=== PATIENT | male | born 1975 | race Caucasian/White ===

== ENCOUNTER 2017-04-01 06:50 | Day surgery (SDC) | payer MEDICAID, OTHER ==
[~2017-04-01 06:50] MED LIST: Lactated Ringers 1,000 ML IV SCH; Sodium Chloride 0.9% 10 ML Syringe FLUSH PRN
[2017-04-01] MEDS ORDERED: Propofol 200 MG/20 ML SDV IV ONE (08:00)
[2017-04-01] MEDS ORDERED: Midazolam 1 MG/ML 2 ML SDV IV ONE (08:00)
--- NOTE | 2017-04-01 08:23 | PCM.OPNOTE ---
- General Post-Op/Procedure Note Date of Surgery/Procedure: 04/01/17 Operative Procedure(s): c scope Findings: anal polyp Pre Op Diagnosis: bleeding per rectum. hx of rectal polyp Post-Op Diagnosis: anal polyp Anesthesia Technique: MAC Primary Surgeon: Tim Roberto Anesthesia Provider: Danuta Benavidez Pathology: none Complications: None Condition: Good Free Text/Narrative:: see dictation
[2017-04-01 11:00] VITALS: BP 110/67
--- NOTE | 2017-04-01 15:10 | OR ---
DATE OF OPERATION: 04/01/2017 SURGEON: Tim Roberto MD PROCEDURE PERFORMED: Colonoscopy. PREOPERATIVE DIAGNOSIS: History of rectal bleeding and rectal polyp. POSTOPERATIVE DIAGNOSIS: Anal polyp. INDICATIONS FOR PROCEDURE: This is a 41-year-old white male, who several years ago had a rectal polyp, which was noted on bleeding. It was recommended that he followup but he lost to followup, presents now with more rectal bleeding, and he was offered and accepted a colonoscopy. DESCRIPTION OF PROCEDURE: After an excellent IV sedation was administered, digital rectal exam was performed. No marked abnormality was noted. Flexible colonoscope was inserted and advanced to the cecum without difficulty. The following findings were noted. Ascending colon, unremarkable. Transverse colon, unremarkable. Descending colon, unremarkable. Rectum, unremarkable. Anal verge; at the anal verge, there was a small polypoid lesion. Given its position, it is not amenable to biopsy without anesthesia. So, we elected to perform this in the office under local. Otherwise, the scope was unremarkable. The patient was taken to the recovery room in good condition. /[id number] /MODL
== END 2017-04-01 09:30 | disposition home or self-care (01) ==
LOC: FB.SDS 06:50
PROVIDERS: ATTEND Surgery
DX: K62.0 Anal polyp (principal); Z86.010 Personal history of colon polyps; Z79.899 Other long term (current) drug therapy
CPT/HCPCS: 45378; J7120; J2250; J2704

== ENCOUNTER 2017-12-16 09:40 | Emergency (ER) | payer MEDICAID ==
[2017-12-16] MEDS ORDERED: Ketorolac 30 MG/ML SDV IVPUSH ONE (09:53)
[2017-12-16] MEDS ORDERED: hydrOXYzine HCl 50 MG/ML SDV IM ONE (09:55)
[2017-12-16] MEDS ORDERED: Sodium Chloride 0.9% 1,000 ML IV SCH (10:00)
[2017-12-16] MEDS: Sodium Chloride 0.9% 10 ML Syringe FLUSH PRN ×2 (10:05→11:49)
--- NOTE | 2017-12-16 10:09 | EDM.PDOC ---
ED HPI GENERAL MEDICAL PROBLEM - General Chief Complaint: Back Pain or Injury Stated Complaint: BACK PAIN Time Seen by Provider: 12/16/17 09:40 Source of Information: Reports: Patient, EMS, EMS Notes Reviewed History Limitations: Reports: No Limitations - History of Present Illness INITIAL COMMENTS - FREE TEXT/NARRATIVE: Rena arrives at [facility] ED by EMS with intense sudden onset R CVA pain radiating to the flank and pelvic brim. There is some nausea, paresthesias in the fingers, and no position that brings relief. Skin is warm and moist. There is no PMH of stone disease, hematuria, back pain or injury. He had tried no meds. Bilateral Lower Back Pain Score (Numeric/FACES): 10 - Related Data Allergies Allergy/AdvReac Type Severity Reaction Status Date / Time No Known Allergies Allergy Verified 12/16/17 09:51 Home Meds: Home Meds Ibuprofen 600 mg PO Q4HR PRN 03/31/17 [History] Tamsulosin HCl [Flomax] 0.4 mg PO DAILY #7 cap.er.24h 12/16/17 [Rx] oxyCODONE HCl/Acetaminophen [Percocet 7.5-325 mg Tablet] 1 each PO Q6HR PRN 3 Days #12 tablet 12/16/17 [Rx] Past Medical History Respiratory History: Reports: Asthma Other Respiratory History: PT VOICED DRY COUGH THAT IRRITATES HIM THE PAST YEAR. NONPRODUCTIVE. Gastrointestinal History: Reports: Colon Polyp Other Gastrointestinal History: RECTAL BLEEDING AT TIMES AND STOMACH DISCOMFORT AT TIMES. Musculoskeletal History: Reports: Back Pain, Chronic Other Musculoskeletal History: HAD STICHES TO [facility] AROUND 7 YEARS OLD , BUT DENIES ANY SURGERY AT THAT TIME. JUST A BAD CUT. - Past Surgical History GI Surgical History: Reports: Colonoscopy Social & Family History - Tobacco Use Smoking Status *Q: Never Smoker - Caffeine Use Caffeine Use: Reports: None - Recreational Drug Use Recreational Drug Use: No ED ROS GENERAL - Review of Systems Review Of Systems: See Below Constitutional: Reports: Decreased Appetite HEENT: Reports: No Symptoms Respiratory: Reports: No Symptoms Cardiovascular: Reports: No Symptoms Endocrine: Reports: No Symptoms GI/Abdominal: Reports: Decreased Appetite, Nausea : Reports: Flank Pain Musculoskeletal: Reports: Back Pain (R CVA) Skin: Reports: No Symptoms Neurological: Reports: Paresthesia, Tingling Psychiatric: Reports: Anxiety Hematologic/Lymphatic: Reports: No Symptoms Immunologic: Reports: No Symptoms ED EXAM, GENERAL - Physical Exam Exam: See Below Exam Limited By: Physical Impairment General Appearance: Alert, WD/WN, Anxious, Moderate Distress Eye Exam: Bilateral Eye: EOMI, Normal Inspection, PERRL Ears: Normal External Exam Nose: Normal Inspection Throat/Mouth: Normal Inspection, Normal Oropharynx Head: Normocephalic Neck: Normal Inspection, Supple, Non-Tender Respiratory/Chest: Lungs Clear, Normal Breath Sounds, Chest Non-Tender Cardiovascular: Regular Rate, Rhythm, No Murmur GI/Abdominal: Normal Bowel Sounds, Soft, No Organomegaly, No Distention, No Mass (Male) Exam: No Hernia Rectal (Males) Exam: Deferred Back Exam: Normal Inspection, CVA Tenderness (R) Extremities: Normal Inspection Neurological: Alert, Oriented, CN II-XII Intact, No Motor/Sensory Deficits Psychiatric: Normal Affect, Anxious Skin Exam: Warm, Intact, Normal Color Lymphatic: No Adenopathy Course - Vital Signs Text/Narrative:: Following assessment at the [facility] ED, an IV was inserted into the LUE, NS 1L, Toradol 30mg IV and Vistaril 50mg IM was administered. There was remission of pain approximately 10 minutes after the analgesic was given. Lab studies noted: Hgb 16 gm, WBC 14,900, plts normal; BMP baseline, UA noted lg blood, >100 RBCs/ hpf. Subsequent Abd-Pelvic CT wo contrast: 5.5 x 7.2 mm opague stone at R pelvic brim with mod hydroureter, stone L kidney; case discussed with Dr Harry medication manager Urologist at [facility], and he will be managed conservatively this weekend, with appt on Tue next week. Issues were discussed with patient, and he will try to manage with Percocet 7.5/325 and Flomax 0.4 mg this weekend with straining all urine. Last Recorded V/S: Last Vital Signs Temp 36.3 C 12/16/17 09:41 Pulse 80 12/16/17 09:41 Resp 24 H 12/16/17 09:41 BP 98/42 L 12/16/17 09:41 Pulse Ox 99 12/16/17 09:41 - Orders/Labs/Meds Orders: Active Orders 24 hr Category Date Time Status UA W/MICROSCOPIC [URIN] Stat Lab 12/16/17 10:20 Ordered Sodium Chloride 0.9% [Normal Saline] 1,000 ml Med 12/16/17 10:00 Active IV ASDIRECTED Sodium Chloride 0.9% [Saline Flush] Med 12/16/17 09:53 Active 10 ml FLUSH ASDIRECTED PRN Peripheral IV Insertion Adult [OM.PC] Routine Oth 12/16/17 09:53 Ordered Medication Orders Sodium Chloride (Normal Saline) 1,000 mls @ 999 mls/hr IV ASDIRECTED COLT Last Admin: 12/16/17 10:05 Dose: 999 mls/hr Sodium Chloride (Saline Flush) 10 ml FLUSH ASDIRECTED PRN PRN Reason: Keep Vein Open Last Admin: 12/16/17 11:49 Dose: 10 ml Admin: 12/16/17 10:05 Dose: 10 ml Labs: Laboratory Tests 12/16/17 12/16/17 12/16/17 Range/Units 10:10 10:10 10:20 WBC 14.9 H (4.5-12.0) X10-3/uL RBC 5.64 (4.30-5.75) x10(6)uL Hgb 16.0 H (11.5-15.5) g/dL Hct 47.2 (30.0-51.3) % MCV 83.7 (80-96) fL MCH 28.3 (27.7-33.6) pg MCHC 33.8 (32.2-35.4) g/dL RDW 13.1 (11.5-15.5) % Plt Count 337 (125-369) X10(3)uL MPV 8.5 (7.4-10.4) fL Add Manual Diff Yes Neutrophils % (Manual) 77 (46-82) % Lymphocytes % (Manual) 18 (13-37) % Monocytes % (Manual) 5 (4-12) % Sodium 139 (135-145) mmol/L Potassium 3.7 (3.5-5.3) mmol/L Chloride 102 (100-110) mmol/L Carbon Dioxide 23 (21-32) mmol/L BUN 16 (7-18) mg/dL Creatinine 1.2 (0.70-1.30) mg/dL Est Cr Clr Drug Dosing TNP Estimated GFR (MDRD) > 60 (>60) BUN/Creatinine Ratio 13.3 (9-20) Glucose 149 H (80-116) mg/dL Calcium 9.5 (8.6-10.2) mg/dL Urine Color Yellow (YELLOW) Urine Appearance Cloudy (CLEAR) Urine pH 5.0 (5.0-6.5) Ur Specific Patriot 1.025 (1.010-1.025) Urine Protein Trace (NEGATIVE) mg/dL Urine Glucose (UA) Normal (NEGATIVE) mg/dL Urine Ketones Negative (NEGATIVE) mg/dL Urine Occult Blood Large H (NEGATIVE) Urine Nitrite Negative (NEGATIVE) Urine Bilirubin Negative (NEGATIVE) Urine Urobilinogen Normal (NEGATIVE) mg/dL Ur Leukocyte Esterase Negative (NEGATIVE) Urine RBC >100 H (0) Urine WBC 0-5 (0) Ur Squamous Epith Cells Few H (NS,R,O) Urine Bacteria Moderate H (NS) Meds: Medications Generic Name Dose Route Start Last Admin Trade Name Freq PRN Reason Stop Dose Admin Sodium Chloride 1,000 mls @ 999 mls/hr 12/16/17 10:00 12/16/17 10:05 Normal Saline IV 999 mls/hr ASDIRECTED COLT Administration Sodium Chloride 10 ml 12/16/17 09:53 12/16/17 11:49 Saline Flush FLUSH 10 ml ASDIRECTED PRN Administration Keep Vein Open Discontinued Medications Generic Name Dose Route Start Last Admin Trade Name Freq PRN Reason Stop Dose Admin Hydromorphone HCl 2 mg 12/16/17 11:54 12/16/17 12:06 Dilaudid IVPUSH 12/16/17 11:55 2 mg ONETIME ONE Administration Hydroxyzine HCl 50 mg 12/16/17 09:55 12/16/17 10:12 Vistaril IM 12/16/17 09:56 50 mg ONETIME ONE Administration Ketorolac Tromethamine 30 mg 12/16/17 09:53 12/16/17 10:05 Toradol IVPUSH 12/16/17 09:54 30 mg ONETIME ONE Administration Tamsulosin HCl 0.4 mg 12/16/17 11:38 12/16/17 11:48 Flomax PO 12/16/17 11:39 0.4 mg ONETIME ONE Administration Departure - Departure Time of Disposition: 12:54 Disposition: Home, Self-Care 01 Condition: Fair Clinical Impression: Ureterolithiasis - Discharge Information Prescriptions: oxyCODONE HCl/Acetaminophen [Percocet 7.5-325 mg Tablet] 1 each PO Q6HR PRN 3 Days #12 tablet PRN Reason: Breakthrough Pain Tamsulosin HCl [Flomax] 0.4 mg PO DAILY #7 cap.er.24h Referrals: PCP,None [Primary Care Provider] - Forms: ED Department Discharge - Problem List & Annotations (1) Ureterolithiasis SNOMED Code(s): 37367483 Code(s): N20.1 - CALCULUS OF URETER Status: Acute Current Visit: Yes Annotation/Comment:: I administered Dilaudid 2 mg IV before discharge, and dispensed Percocet 7.5-325 #12 and Flomax 0.4 mg qd, strain all urine. He will follow up with [facility] next week. - Problem List Review Problem List Initiated/Reviewed/Updated: Yes - My Orders Last 24 Hours: My Active Orders 12/16/17 09:53 Sodium Chloride 0.9% [Saline Flush] 10 ml FLUSH ASDIRECTED PRN Peripheral IV Insertion Adult [OM.PC] Routine 12/16/17 10:00 Sodium Chloride 0.9% [Normal Saline] 1,000 ml IV ASDIRECTED 12/16/17 10:20 UA W/MICROSCOPIC [URIN] Stat - Assessment/Plan Last 24 Hours: My Active Orders 12/16/17 09:53 Sodium Chloride 0.9% [Saline Flush] 10 ml FLUSH ASDIRECTED PRN Peripheral IV Insertion Adult [OM.PC] Routine 12/16/17 10:00 Sodium Chloride 0.9% [Normal Saline] 1,000 ml IV ASDIRECTED 12/16/17 10:20 UA W/MICROSCOPIC [URIN] Stat Plan: Dr Harry, medication manager Urology at [facility] will be sent CT films for review, and manage if sxs persist or escalate.
[2017-12-16 11:34] VITALS: BP 98/42
[2017-12-16] MEDS ORDERED: Tamsulosin 0.4 MG Cap.ER PO ONE (11:38)
[2017-12-16] MEDS ORDERED: HYDROmorphone 2 MG/ML SDV IVPUSH ONE (11:54)
--- NOTE | 2017-12-16 12:10 | CT ---
INDICATION: Suspected right urolithiasis, sudden onset right cva and flank pain about 3 hours ago, hematuria, and more recent sudden remission of pain. CT ABDOMEN AND PELVIS WITHOUT CONTRAST: Spiral 1.25-mm axial sections were obtained through the abdomen and pelvis with sagittal and coronal reconstructions, without contrast, utilizing renal calculus protocol, 2017 - no comparisons. Total Exam DLP = 1397.55 mGy-cm. The lower lung jones and pleural spaces visualized revealed no evidence of an active infiltrate or effusion. No gallstones are demonstrated. No liver abnormality was demonstrated. The pancreas is slightly fatty replaced. The spleen was unremarkable. The adrenal glands appeared normal. No retroperitoneal mass was identified. There is obstructive uropathy on the right due to a 5.5 x 7.2-mm calculus at the ureteropelvic junction on the right. Renal fascial thickening is greater on the right than left, which may be on the basis of the obstructive uropathy. A very tiny calculus appears to be present in the upper pole of the right kidney. In the upper middle pole area of the left kidney anteriorly, there is noted a calculus which measures approximately 4.2 x 3 mm. An additional very tiny calculus is present in the mid pole posteriorly at the left kidney. No other definite renal abnormality was identified. The appendix was normal in appearance and visualized on coronal images #45 through #51, and axial images #176 through #246. No evidence of bowel obstruction or free air was seen. There is suggestion of an inguinal hernia on the left, including only fat. The prostate did not appear to be significantly enlarged. The urinary bladder was unremarkable. No additional pathologic calcifications, organomegaly, mass lesions, or free fluid collections were identified in the abdomen or pelvis. IMPRESSION: 1. Obstructive uropathy is moderate at the right ureteropelvic junction due to a 5.5 x 7.2-mm calculus. 2. A 3 x 4-mm calculus is noted in the mid pole of the left kidney. No obstructive uropathy on the left, however. Report was called to Dr. Frausto at 1130 hours, 12/16/2017. [facility]
== END 2017-12-16 14:15 | disposition home or self-care (01) ==
LOC: FB.ED 09:40
DX: N20.2 Calculus of kidney with calculus of ureter (principal); J45.909 Unspecified asthma, uncomplicated; Z79.899 Other long term (current) drug therapy
CPT/HCPCS: 36415; 74176; 80048; 81001; 85025; 96361; 96372; 96374; 99284; A9270-GY; J1170; J1885; J3410; J7040; J7050

== ENCOUNTER 2017-12-23 10:10 | Emergency (ER) | payer MEDICAID | END 2017-12-23 10:25 | disposition left against medical advice (07) | LOC: FB.ED 10:10 | DX: Z53.21 Procedure and treatment not carried out due to patient leaving prior to being seen by health care provider (principal) ==

== ENCOUNTER 2018-11-13 06:27 | Emergency (ER) | payer MEDICAID ==
[2018-11-13 06:41] VITALS: BP 125/74
--- NOTE | 2018-11-13 06:55 | EDM.PDOC ---
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 NONPRODUCTIVE. Gastrointestinal History: Reports: Colon Polyp Other Gastrointestinal History: RECTAL BLEEDING AT TIMES AND STOMACH DISCOMFORT AT TIMES. Musculoskeletal History: Reports: Back Pain, Chronic Other Musculoskeletal History: HAD STICHES TO [facility] AROUND 7 YEARS OLD , BUT DENIES ANY SURGERY AT THAT TIME. JUST A BAD CUT. Neurological History: Reports: Concussion - Past Surgical History GI Surgical History: Reports: Colonoscopy Social & Family History - Family History Family Medical History: Noncontributory - Caffeine Use Caffeine Use: Reports: None ED ROS GENERAL - Review of Systems Review Of Systems: See Below Constitutional: Reports: No Symptoms HEENT: Reports: Dental Pain Respiratory: Reports: No Symptoms Cardiovascular: Reports: No Symptoms Endocrine: Reports: No Symptoms GI/Abdominal: Reports: No Symptoms : Reports: No Symptoms Musculoskeletal: Reports: No Symptoms Skin: Reports: No Symptoms Neurological: Reports: No Symptoms Psychiatric: Reports: No Symptoms Hematologic/Lymphatic: Reports: No Symptoms Immunologic: Reports: No Symptoms ED EXAM, GENERAL - Physical Exam Exam: See Below Exam Limited By: No Limitations General Appearance: Alert, WD/WN, Mild Distress Nose: Normal Inspection, Normal Mucosa, No Blood Throat/Mouth: Normal Oropharynx, Normal Voice, No Airway Compromise, Other ( mild swell over R mid mandible, no LNs, tooth #29 eroded almost to gum line, 1+ tender, red and swell at lateral gum line) Head: Atraumatic, Normocephalic Neck: Normal Inspection, Supple, Non-Tender, Full Range of Motion. No: Lymphadenopathy (R), Lymphadenopathy (L) Course - Vital Signs Last Recorded V/S: Last Vital Signs Temp 36.4 C 11/13/18 06:30 Pulse 92 11/13/18 06:30 Resp 18 11/13/18 06:30 BP 125/74 11/13/18 06:30 Pulse Ox 98 11/13/18 06:30 Departure - Departure Time of Disposition: 06:55 Disposition: Home, Self-Care 01 Condition: Good Clinical Impression: Dental abscess, Gingivitis - Discharge Information *PRESCRIPTION DRUG MONITORING PROGRAM REVIEWED*: Not Applicable *COPY OF PRESCRIPTION DRUG MONITORING REPORT IN PATIENT RHONDA: Not Applicable Prescriptions: Amoxicillin 500 mg PO TID #21 tab Instructions: Dental Abscess, Gingivitis Forms: ED Department Discharge, ED Return to Work/School Form Additional Instructions: For infection, take amoxicillin 500 mg 1 tab 3 times a day for 7 days. For pain, take ibuprofen 200 mg 3 tabs and acetaminophen 500 mg 2 tabs 4 times a day for 2 days, longer if needed. For pain, put a thin layer of viscous lidocaine on a cotton ball and bite down every hour as needed. Use ice pack to jaw for 10 minutes every 2 hours. Drink cold liquids. Eat cool, soft food. Chew on the left side of the mouth. See a dentist in the next week.
[2018-11-13] MEDS ORDERED: Ketorolac 60 MG/2 ML SDV IM ONE (06:57)
[2018-11-13] MEDS ORDERED: Lidocaine 2% Viscous Solution 15 ML Cup PO ONE (07:00)
== END 2018-11-13 07:26 | disposition home or self-care (01) ==
LOC: FB.ED 06:27
DX: K04.7 Periapical abscess without sinus (principal); K05.10 Chronic gingivitis, plaque induced
CPT/HCPCS: 96372; 99282; A9270; J1885

== ENCOUNTER 2024-10-30 06:35 | Day surgery (SDC) | payer BC, MEDICAID ==
[~2024-10-30 06:35] MED LIST changes: -Lactated Ringers 1,000 ML IV SCH
[2024-10-30] MEDS ORDERED: Propofol 200 MG/20 ML SDV IV ONE (06:36)
[2024-10-30] MEDS ORDERED: Lidocaine 1% PF 2 ML SDV IV ONE (06:36)
[2024-10-30] MEDS: Lactated Ringers 1,000 ML IV SCH (07:25)
[2024-10-30] MEDS: Simethicone Drops 40 MG/0.6 ML 30 ML Bottle ONE (07:42)
[2024-10-30 10:21] VITALS: BP 116/69; PULSE 78
== END 2024-10-30 09:05 | disposition home or self-care (01) ==
LOC: FB.SDS 06:35
PROVIDERS: ATTEND Surgery
DX: D12.6 Benign neoplasm of colon, unspecified (principal); D12.8 Benign neoplasm of rectum; K40.90 Unilateral inguinal hernia, without obstruction or gangrene, not specified as recurrent; K43.9 Ventral hernia without obstruction or gangrene
CPT/HCPCS: 00811; 45385; 88305; A9270; J2003; J2704; J7120

== ENCOUNTER 2024-12-12 06:58 | Day surgery (SDC) | payer BC ==
[2024-12-12] MEDS ORDERED: Dexamethasone 4 MG/ML 5 ML MDV IVPUSH ONE (06:59)
[2024-12-12] MEDS ORDERED: Propofol 200 MG/20 ML SDV IV ONE (06:59)
[2024-12-12] MEDS ORDERED: Ketorolac 30 MG/ML SDV IVPUSH ONE (06:59)
[2024-12-12] MEDS ORDERED: Ketamine 500 mg/10 ML MDV IV ONE (06:59)
[2024-12-12] MEDS ORDERED: Ondansetron 4 MG/2 ML SDV IVPUSH ONE (06:59)
[2024-12-12] MEDS ORDERED: fentaNYL 100 MCG/2 ML SDV IV ONE ×2 (06:59)
[2024-12-12] MEDS ORDERED: Lidocaine 2% 100 MG/5 ML Syringe IVPUSH ONE (06:59)
[2024-12-12] MEDS ORDERED: Midazolam 1 MG/ML 2 ML SDV IV ONE (06:59)
[2024-12-12 07:48] VITALS: BP 136/73; PULSE 83
[2024-12-12] MEDS: Lactated Ringers 1,000 ML IV SCH (07:55)
[2024-12-12] MEDS: ceFAZolin 2 GM Vial IVPUSH ONE (08:01)
[2024-12-12] MEDS: Bupivacaine 0.5% 30 ML SDV INJECT ONE (08:20)
[2024-12-12] MEDS: Lidocaine 1% with EPINEPHrine 1:100,000 20 ML MDV INJECT ONE (08:20)
[2024-12-12] MEDS: Acetaminophen 500 MG Tab PO ONE (11:02)
== END 2024-12-12 11:10 | disposition home or self-care (01) ==
LOC: FB.SDS 06:58
PROVIDERS: ATTEND Surgery
DX: K40.90 Unilateral inguinal hernia, without obstruction or gangrene, not specified as recurrent (principal); D17.6 Benign lipomatous neoplasm of spermatic cord; K42.9 Umbilical hernia without obstruction or gangrene
CPT/HCPCS: 00860; 88304; A9270-GY; C1781; J0665; J0690; J1100; J1885; J2004; J2250; J2405; J2704; J3010; J3490; J7120

== ENCOUNTER 2025-01-30 06:15 | Day surgery (SDC) | payer BC ==
[2025-01-30] MEDS ORDERED: Midazolam 1 MG/ML 2 ML SDV IV ONE (06:16)
[2025-01-30] MEDS ORDERED: Ondansetron 4 MG/2 ML SDV IVPUSH ONE (06:16)
[2025-01-30] MEDS ORDERED: Ketorolac 30 MG/ML SDV IVPUSH ONE (06:16)
[2025-01-30] MEDS ORDERED: ceFAZolin 2 GM Vial IVPUSH ONE ×2 (06:16→07:15)
[2025-01-30] MEDS ORDERED: fentaNYL 100 MCG/2 ML SDV IV ONE (06:16)
[2025-01-30] MEDS ORDERED: Propofol 200 MG/20 ML SDV IV ONE (06:16)
[2025-01-30 06:35] VITALS: BP 120/80; PULSE 84
[2025-01-30] MEDS: Lactated Ringers 1,000 ML IV SCH (06:52)
[2025-01-30] MEDS: Bupivacaine 0.5% 30 ML SDV INJECT ONE ×3 (07:52)
[2025-01-30] MEDS: Lidocaine 1% with EPINEPHrine 1:100,000 20 ML MDV INJECT ONE ×3 (07:52)
== END 2025-01-30 09:38 | disposition home or self-care (01) ==
LOC: FB.SDS 06:15
PROVIDERS: ATTEND Surgery
DX: K42.0 Umbilical hernia with obstruction, without gangrene (principal); Z79.899 Other long term (current) drug therapy
CPT/HCPCS: 00832; J0665; J0690; J1885; J2004; J2250; J2405; J2704; J3010; J7120